=== PATIENT | male | born 2000 | race Caucasian/White ===

== ENCOUNTER 2023-12-20 11:54 | Emergency (ER) | payer OTHER, SELFPAY ==
[2023-12-20 12:19] VITALS: BP 114/72; PULSE 95; RESP 18; TEMP 37; O2SAT 96; BMI 19.0
--- NOTE | 2023-12-20 12:21 | ED_ITS ---
HPI - General Adult General Chief complaint: Psychiatric Symptoms Stated complaint: Psych eval Time Seen by Provider: 12/20/23 14:21 Source: patient and family (patient's mother) Mode of arrival: ambulatory Limitations: no limitations History of Present Illness HPI narrative: Patient is a 23 year old assigned male at with a history of OCD presenting to the emergency department today with worsening sensitivity to surroundings and increased agitation. Patient states that he feels like more things are triggering to him / overwhelming him. Patient's mother states that the patient is more angry lately. Patient denies any dizziness, lightheadedness, abdominal pain, nausea, vomiting, fever, chills, blurry vision, double vision, loss of vision, chest pain, difficulty breathing, shortness of breath, back pain, night sweats, pain with urination, increased urinary frequency, increased urinary urgency, blood in his urine or stool, syncope or a near syncopal episode, recent trauma or falls, bowel incontinence, bladder incontinence, bowel retention, bladder retention, or any other complaints at this time. Onset (ago): day(s) Relieving factors: none Exacerbating factors: none Associated symptoms: denies other symptoms Treatments prior to arrival: none Related Data Allergies Allergy/AdvReac Type Severity Reaction Status Date / Time No Known Allergies Allergy Verified 12/20/23 12:18 Review of Systems 2 Constitutional: Constitutional: Reports no additional constitutional complaints, Denies chills, Denies fever(s) and Denies night sweats Eyes: Eyes: Reports no additional eye complaints, Denies blurry vision, Denies change in vision, Denies diplopia, Denies eye discharge, Denies loss of vision and Denies eye pain ENT: Denies dizziness Cardiovascular: Cardiovascular: Reports no additional cardiovascular complaints, Denies chest pain, Denies lightheadedness, Denies Loss of Consciousness and Denies dyspnea Respiratory: Respiratory: Reports no additional respiratory complaints and Denies dyspnea Gastrointestinal: Gastrointestinal: Reports no additional gastrointestinal complaints, Denies abdominal pain, Denies melena, Denies hematochezia, Denies change in bowel habits and Denies change in stool character Genitourinary: Genitourinary: Reports no additional male genitourinary complaints, Denies hematuria, Denies oliguria, Denies difficulty urinating, Denies dysuria, Denies urinary frequency, Denies urinary hesitancy, Denies urinary incontinence and Denies urinary urgency Musculoskeletal: Musculoskeletal: Reports no additional musculoskeletal complaints, Denies numbness and Denies tingling Neurologic: Denies dizziness, Denies loss of vision, Denies numbness and Denies tingling Psychiatric: Psychiatric: Reports irritability Endocrine: Endocrine: Reports no additional endocrine complaints Hematologic/Lymphatic: Hematologic/Lymphatic: Reports no additional hematologic/lymphatic complaints Allergic/Immunologic: Allergic/Immunologic: Reports no additional allergic/immunologic complaints PMFSH Past Medical History Attestation statement: The following information was validated with the patient. (patient's mother validated all information) Source: old records reviewed, obtained from family (patient's mother provided additional history and confirmed the history provided by the patient) and nursing notes reviewed Social History Social History Advance Directives: No Advance Directives Information Provided: No Physical Exam ED Vital Signs: Vital Signs - 24 hr 12/20/23 12:19 Temperature 98.6 F Pulse Rate 95 Respiratory Rate 18 Blood Pressure 114/72 Pulse Oximetry 96 Oxygen Delivery Method Room Air BMI result Body Mass Index 19.0 Const General: cooperative, no acute distress, alert and awake Nutritional Appearance: well nourished Orientation/consciousness: patient oriented x3 Limitations: no limitations HENMT Head: Yes normal to inspection and Yes atraumatic Ears: hearing grossly normal bilaterally and external ears normal General nose exam: Normal external nose present, no nasal discharge noted and no epistaxis Face and sinus: Yes normal facial exam, No abrasion and No laceration Mouth: Normal oral and palatal mucosa present, no drooling and no muffled voice Eyes General: appearance normal, both eyes and all related structures Periorbital: periorbital findings normal Eyelids: Yes eyelids normal Conjunctivae: conjunctivae normal Pupils: Equal, round and reactive pupils present EOM: EOMs intact bilaterally Neck Neck: Yes normal visual inspection, Yes full ROM and Yes no lymphadenopathy Chest Chest palpation & inspection: normal inspection of the chest Resp Effort & Inspection: normal respiratory effort and able to speak in complete sentences GI Inspection: Yes normal to inspection Neuro General: patient oriented x3 and moves all extremities Cranial nerves: Yes Equal, round and reactive pupils present Cognition (Neuro): normal cognition Motor exam (neuro): 5/5 motor strength present throughout Sensory Exam: Normal double simultaneous stimulation for sensation Coordination: [id number] test normal Extrem General: Yes normal to inspection, Yes full ROM and Yes capillary refill normal Psych Appearance: grossly normal Mental Status: mental status grossly normal Affect: normal affect Attitude: cooperative Thought process: Normal thought process present Thought content: Normal thought content present Insight: Good insight present (Psych) Course Course Course Narrative: RME performed by Jolie Duncan PA-C. Patient is a 23 year old assigned male at presenting to the emergency department with increased agitation and worsening OCD. Patient believes he needs to be admitted to the hospital. Detailed physical exam and review of systems are deferred to the aquatics instructor. Labs ordered. Behavioral health notified. Medical Decision Making Medical Decision Making [facility] Narrative: Patient is a 23 year old assigned male at with a history of OCD presenting to the emergency department today with increased trigger sensitivity and anger. Patient's physical exam was unremarkable. Patient's blood work was unremarkable. Patient's urine showed no acute process. I explained my physical exam findings as well as all test results to the patient and the patient's mother. I answered all questions asked by the patient and the patient's mother. Patient's disposition is pending CARE evaluation. Differential Diagnosis Differential Diagnoses: The differential diagnosis associated with the presentation includes Crisis Worsening OCD Admission/Observation Consideration of admission/observation: Escalation of care including admission/observation considered Patient's disposition pending CARE eval. Lab Data [facility] Lab Attestation statement: I reviewed the patient's lab results. My interpretation of these results are in the [facility] Rationale portion of this note. 12/20/23 14:32 12/20/23 14:32 Labs: Lab Results 12/20/23 Range/Units 14:32 WBC 7.2 (4.8-10.8) X10*3/uL RBC 5.53 (4.60-5.80) X10*6/uL Hgb 15.8 (14.0-18.0) g/dl Hct 47.2 (42.0-52.0) % MCV 85.4 (80.0-98.0) fL MCH 28.6 (27.0-33.0) pg MCHC 33.5 (31.0-36.0) g/dl RDW 12.8 (11.0-16.0) % Plt Count 264 (160-400) X10*3/uL MPV 9.1 L (9.4-12.4) fL Immature Gran % (Auto) 0.1 (0.0-0.4) % Neut % (Auto) 51.1 (45-73) % Lymph % (Auto) 32.7 (20-40) % [place] % (Auto) 13.8 H (2-11) % Eos % (Auto) 1.9 (0-4) % Baso % (Auto) 0.4 (0-2) % Lymph # (Auto) 2.4 (1.2-4.9) X10*3/uL [place] # (Auto) 1.0 (0.1-1.2) X10*3/uL Eos # (Auto) 0.1 (0.0-0.4) X10*3/uL Baso # (Auto) 0.0 (0.0-0.2) X10*3/uL Abs Immat Gran (auto) 0.01 (0.00-0.03) X10*3/uL Absolute Neuts (auto) 3.7 (2.0-8.3) x10*3/uL Absolute Nucleated RBC 0.000 (0.0-0.012) X10*3/uL Nucleated RBC % (auto) 0.0 (0.0-0.2) /100WBC Sodium 141 (135-145) mmol/L Potassium 4.3 (3.3-5.1) mmol/L Chloride 109 H (96-108) mmol/L Carbon Dioxide 26 (22-29) mmol/L Anion Gap 10 L (12-20) BUN 18 H (9-16) mg/dL Creatinine 0.80 (0.5-1.4) mg/dL Estim Creat Clear Calc 111.0 Estimated GFR > 60 Random Glucose 63 (60-115) mg/dL Calcium 9.9 (8.4-10.2) mg/dL Total Bilirubin 0.3 (0.0-1.0) mg/dL AST 18 (5-37) U/L ALT 19 (0-40) U/L Alkaline Phosphatase 57 (39-117) U/L Total Protein 7.7 (6.5-8.0) g/dL Albumin 4.6 (3.5-5.0) g/dL Salicylates < 5.0 L (15-30) mg/dL Acetaminophen < 3 (<30) mcg/mL Ethyl Alcohol < 10 mg/dL COVID-19 (LO) Negative (Negative) COVID-19 Clin Com See Note Independent Historian Clinical information obtained from an independent historian. History obtained from or confirmed by: Parent (patient's mother provided additional history and confirmed the history provided by the patient.) Discharge Plan Discharge Clinical Impression: OCD (obsessive compulsive disorder) Patient Disposition: Still a Patient
[2023-12-20 14:39] LABS: MANUAL DIFF FLAG NO
[2023-12-20 14:42] LABS: Basophils Percent Auto 0.4 % (0-2); Eosinophils Absolute Auto 0.1 X10*3/uL (0.0-0.4); Eosinophils Percent Auto 1.9 % (0-4); Hematocrit 47.2 % (42.0-52.0); Hemoglobin 15.8 g/dl (14.0-18.0); Imm Gran Abs Auto 0.01 X10*3/uL (0.00-0.03); Imm Gran Pct Auto 0.1 % (0.0-0.4); Lymphocytes Absolute Auto 2.4 X10*3/uL (1.2-4.9); Lymphocytes Percent Auto 32.7 % (20-40); Mean Corpuscular HGB Conc 33.5 g/dl (31.0-36.0); Mean Corpuscular Hemoglobin 28.6 pg (27.0-33.0); Mean Corpuscular Volume 85.4 fL (80.0-98.0); Mean Platelet Volume 9.1 fL (9.4-12.4); Monocytes Percent Auto 13.8 % (2-11); Neutrophils Absolute Auto 3.7 x10*3/uL (2.0-8.3); Neutrophils Percent Auto 51.1 % (45-73); Platelet Count 264 X10*3/uL (160-400); Red Blood Count 5.53 X10*6/uL (4.60-5.80); Red Cell Distribution Width 12.8 % (11.0-16.0); White Blood Count 7.2 X10*3/uL (4.8-10.8)
[2023-12-20 14:57] LABS: Alanine Aminotransferase 19 U/L (0-40); Albumin Level 4.6 g/dL (3.5-5.0); Alkaline Phosphatase 57 U/L (39-117); Anion Gap 10 (12-20); Aspartate Amino Transferase 18 U/L (5-37); Bilirubin Total 0.3 mg/dL (0.0-1.0); Blood Urea Nitrogen 18 mg/dL (9-16); Calcium 9.9 mg/dL (8.4-10.2); Carbon Dioxide 26 mmol/L (22-29); Chloride 109 mmol/L (96-108); Estimated Glomerular Filt Rate > 60; Ethanol < 10 mg/dL; Glucose Random 63 mg/dL (60-115); Potassium 4.3 mmol/L (3.3-5.1); Sodium 141 mmol/L (135-145); Total Protein 7.7 g/dL (6.5-8.0)
[2023-12-20 15:11] LABS: COVID-19 Test Negative (Negative); IDNOW Serial# 152EDE1D
[2023-12-20 15:20] LABS: Acetaminophen LAB < 3 mcg/mL (<30); Salicylate < 5.0 mg/dL (15-30)
[2023-12-20 15:46] LABS: Appearance Urine Clear; Color Urine Yellow; Glucose Urine UA Negative (Negative); Leukocyte Esterase Urine Negative (Negative); Nitrite Urine Negative (Negative); PH 5.5 (5.0-9.0); Specific Gravity - Urine 1.025 (1.005-1.025); Urine Blood Negative (Negative); Urine Ketones Negative (Negative); Urine Protein Negative (Neg-Trace)
--- NOTE | 2023-12-20 17:29 | PC.NURSE ---
Lakia from Care Team at pt's bedside, pt's mother present.
[2023-12-20 18:28] LABS: Amphetamine Screen Urine Not Detected (Not Detect); Barbiturates, Urine Not Detected (Not Detect); Benzodiazepines Screen Urine Not Detected (Not Detect); Cannabinoid Screen Urine Not Detected (Not Detect); Cocaine Screen Urine Not Detected (Not Detect); Fentanyl, urine Not Detected (Not Detect); Opiate Screen Urine Not Detected (Not Detect); Phencyclidine Screen Urine Not Detected (Not Detect)
--- NOTE | 2023-12-20 19:37 | PC.NURSE ---
patient here and remains at rest presently, respirations are even and unlabored patient appears in no distress.
[2023-12-20 20:51] VITALS: BP 148/86; PULSE 84; RESP 20; TEMP 36.6; O2SAT 96
[2023-12-20] MEDS: fluvoxaMINE Maleate 50 MG TABLET PO (21:50)
[2023-12-20] MEDS: OLANZapine 7.5 MG TABLET PO (21:50)
--- NOTE | 2023-12-20 22:24 | MHC.CARE ---
Pt referred to [facility], LEATHER STRETCHER Goldie, EVANGELINA Barreto, and [facility] resp[facility].
[2023-12-21 06:28] VITALS: BP 111/69; PULSE 69; RESP 15; TEMP 36.8; O2SAT 97
--- NOTE | 2023-12-21 07:10 | PC.NURSE ---
Assumed care of patient at 0700, patient appears to be sleeping, respirations even and unlabored, no apparent distress. Continue plan of care for [facility] referral
[2023-12-21] MEDS: lamoTRIgine 25 MG TABLET 75 MG PO (08:09)
[2023-12-21 13:27] VITALS: BP 109/88; PULSE 76; RESP 16; TEMP 36.6; O2SAT 98
== END 2023-12-21 13:28 | disposition home or self-care (01) ==
PROVIDERS: Physician Assistant Medical; Emergency Provider Emergency Medicine; PCP Internal Medicine
DX: F42.9 Obsessive-compulsive disorder, unspecified (principal); Z11.52 Encounter for screening for COVID-19
CPT/HCPCS: 80053; 80143; 80179; 80307; 81003; 85025; 87635; 99285; S9485

== ENCOUNTER 2025-01-17 12:44 | Emergency (ER) | payer OTHER, SELFPAY ==
--- NOTE | 2025-01-17 12:55 | ED.GENADULT ---
HPI - General Adult General Chief complaint: Psychiatric Symptoms Stated complaint: psych eval Time Seen by Provider: 01/17/25 12:55 Source: patient and family (patient's mother and step-father) Mode of arrival: ambulatory Limitations: no limitations History of Present Illness ED Provider: Jolie Duncan PA-C HPI narrative: Patient is a 24 year old assigned male at with a history of OCD and Autism presenting to the emergency department today with depression. Patient states that he is feeling more depressed but is not currently having any thoughts of hurting himself or others. Patient denies any dizziness, lightheadedness, abdominal pain, nausea, vomiting, fever, chills, blurry vision, double vision, loss of vision, chest pain, difficulty breathing, shortness of breath, back pain, night sweats, pain with urination, increased urinary frequency, increased urinary urgency, blood in his urine or stool, syncope or a near syncopal episode, recent trauma or falls, bowel incontinence, bladder incontinence, or any other complaints at this time. Relieving factors: none Exacerbating factors: none Associated symptoms: denies other symptoms Treatments prior to arrival: none Related Data Home Medications ?Medication ?Instructions ?Recorded ?Confirmed fluvoxamine 25 mg tablet 25 mg PO BEDTIME 12/20/23 12/20/23 fluvoxamine 50 mg tablet 50 mg PO BEDTIME 12/20/23 12/20/23 lamotrigine 25 mg tablet 75 mg PO QAM 12/20/23 12/20/23 olanzapine 7.5 mg tablet 7.5 mg PO BEDTIME 12/20/23 12/20/23 Allergies Allergy/AdvReac Type Severity Reaction Status Date / Time No Known Allergies Allergy Verified 01/17/25 13:13 Review of Systems Constitutional: Constitutional: Reports no additional constitutional complaints, Denies chills, Denies fever(s) and Denies night sweats Eyes: Eyes: Reports no additional eye complaints, Denies blurry vision, Denies change in vision, Denies diplopia, Denies eye discharge, Denies loss of vision and Denies eye pain ENT: Denies dizziness Cardiovascular: Cardiovascular: Reports no additional cardiovascular complaints, Denies chest pain, Denies lightheadedness, Denies Loss of Consciousness and Denies dyspnea Respiratory: Respiratory: Reports no additional respiratory complaints and Denies dyspnea Gastrointestinal: Gastrointestinal: Reports no additional gastrointestinal complaints, Denies abdominal pain, Denies melena, Denies hematochezia, Denies change in bowel habits and Denies change in stool character Genitourinary: Genitourinary: Reports no additional male genitourinary complaints, Denies hematuria, Denies oliguria, Denies difficulty urinating, Denies dysuria, Denies urinary frequency, Denies urinary hesitancy, Denies urinary incontinence and Denies urinary urgency Musculoskeletal: Musculoskeletal: Reports no additional musculoskeletal complaints, Denies numbness and Denies tingling Neurologic: Denies dizziness, Denies loss of vision, Denies numbness and Denies tingling Psychiatric: Psychiatric: Reports no additional psychiatric complaints, Reports depression, Denies homicidal ideation and Denies suicidal ideation Endocrine: Endocrine: Reports no additional endocrine complaints Hematologic/Lymphatic: Hematologic/Lymphatic: Reports no additional hematologic/lymphatic complaints Allergic/Immunologic: Allergic/Immunologic: Reports no additional allergic/immunologic complaints PMFSH Past Medical History Attestation statement: The following information was validated with the patient. (all information validated with the patient's mother and step-father) Source: old records reviewed and obtained from family (patient's mother and step-father provided additional history and confirmed the history provided by the patient. ) Social History Social History Advance Directives: No Advance Directives Information Provided: Yes Physical Exam ED Vital Signs: Vital Signs - 24 hr 01/17/25 12:59 01/17/25 16:37 Temperature 98.9 F 98.4 F Pulse Rate 84 91 Respiratory Rate 18 14 Blood Pressure 133/70 127/70 Pulse Oximetry 96 96 Oxygen Delivery Method Room Air Room Air BMI result Body Mass Index 20.8 Const General: cooperative, no acute distress, alert and awake Nutritional Appearance: well nourished Orientation/consciousness: patient oriented x3 Limitations: no limitations HENMT Head: Yes normal to inspection and Yes atraumatic Ears: hearing grossly normal bilaterally and external ears normal General nose exam: Normal external nose present, no nasal discharge noted and no epistaxis Face and sinus: Yes normal facial exam, No abrasion and No laceration Mouth: Normal oral and palatal mucosa present, no drooling and no muffled voice Eyes General: appearance normal, both eyes and all related structures Periorbital: periorbital findings normal Eyelids: Yes eyelids normal Conjunctivae: conjunctivae normal Pupils: Equal, round and reactive pupils present EOM: EOMs intact bilaterally Neck Neck: Yes normal visual inspection, Yes full ROM and Yes no lymphadenopathy Chest Chest palpation & inspection: normal inspection of the chest Resp Effort & Inspection: normal respiratory effort and able to speak in complete sentences GI Inspection: Yes normal to inspection Neuro General: patient oriented x3, moves all extremities and CN's II-XI intact bilaterally Cranial nerves: Yes Equal, round and reactive pupils present Cognition (Neuro): normal cognition Extrem General: Yes normal to inspection, Yes full ROM and Yes capillary refill normal Psych Appearance: grossly normal Mental Status: mental status grossly normal Affect: Indifferent affect present Attitude: cooperative Thought process: Normal thought process present Thought content: Normal thought content present Medical Decision Making Medical Decision Making MDM Narrative: Patient is a 24 year old assigned male at with a history of OCD and Autism presenting to the emergency department today with depression. Patient's physical exam was as noted in the physical exam portion of this note. Patient's blood work was unremarkable. Patient's EKG was unremarkable. I explained my physical exam findings as well as all test results to the patient and the patient's mother, and patient's step-father. I answered all questions asked by the patient and the patient's mother, and patient's step-father. Patient was evaluated by the CARE team who spent an extensive amount of time discharge planning with the patient and the patient's mother, and patient's step-father. The patient and the patient's mother, and patient's step-father all verbalized agreement and comfort with bringing the patient back home. I stressed the importance of the patient taking his medication as directed (either prescribed or as the over the counter packaging recommends). I stressed the importance of the patient following up with his primary care provider and his psychiatric providers. I stressed the importance of the patient returning to the emergency department immediately if his symptoms were to worsen or if he were to develop any suicidal ideation, homicidal ideation, dizziness, shortness of breath, difficulty breathing, chest pain, blurry vision, loss of vision, nausea, vomiting, abdominal pain, fever, chills, back pain, or any other complaints. Patient and the patient's mother, and patient's step-father verbalized agreement and understanding with this treatment plan and discharge. Differential Diagnosis Differential Diagnoses: The differential diagnosis associated with the presentation includes Depression Admission/Observation Consideration of admission/observation: Escalation of care including admission/observation considered Patient would have been admitted to the hospital had his work up had any findings where hospital admission was appropriate and his clinical presentation warranted hospital admission. Consult Healthcare Provider Management of the patient was discussed with: Behavioral Health Provider (spoke with the CARE team as noted in the MDM Rationale portion of this note. ) Lab Data [facility] Lab Attestation statement: I reviewed the patient's lab results. My interpretation of these results are in the MDM Rationale portion of this note. 01/17/25 13:23 01/17/25 13:23 Labs: Lab Results 01/17/25 Range/Units 13:23 WBC 7.1 (4.8-10.8) X10*3/uL RBC 5.46 (4.60-5.80) X10*6/uL Hgb 15.8 (14.0-18.0) g/dl Hct 46.4 (42.0-52.0) % MCV 85.0 (80.0-98.0) fL MCH 28.9 (27.0-33.0) pg MCHC 34.1 (31.0-36.0) g/dl RDW 13.1 (11.0-16.0) % Plt Count 225 (160-400) X10*3/uL MPV 9.3 L (9.4-12.4) fL Immature Gran % (Auto) 0.3 (0.0-0.4) % Neut % (Auto) 66.2 (45-73) % Lymph % (Auto) 23.2 (20-40) % [place] % (Auto) 8.3 (2-11) % Eos % (Auto) 1.4 (0-4) % Baso % (Auto) 0.6 (0-2) % Lymph # (Auto) 1.7 (1.2-4.9) X10*3/uL [place] # (Auto) 0.6 (0.1-1.2) X10*3/uL Eos # (Auto) 0.1 (0.0-0.4) X10*3/uL Baso # (Auto) 0.0 (0.0-0.2) X10*3/uL Abs Immat Gran (auto) 0.02 (0.00-0.03) X10*3/uL Absolute Neuts (auto) 4.7 (2.0-8.3) x10*3/uL Absolute Nucleated RBC 0.000 (0.0-0.012) X10*3/uL Nucleated RBC % (auto) 0.0 (0.0-0.2) /100WBC Sodium 141 (135-145) mmol/L Potassium 3.4 D (3.3-5.1) mmol/L Chloride 107 (96-108) mmol/L Carbon Dioxide 26 (22-29) mmol/L Anion Gap 11 L (12-20) BUN 20 H (9-16) mg/dL Creatinine 0.95 (0.5-1.4) mg/dL Estim Creat Clear Calc 96.9 Estimated GFR > 60 Random Glucose 141 H (60-115) mg/dL Calcium 9.6 (8.4-10.2) mg/dL Total Bilirubin 0.4 (0.0-1.0) mg/dL AST 34 (5-37) U/L ALT 53 H (0-40) U/L Alkaline Phosphatase 60 (39-117) U/L Total Protein 7.0 (6.5-8.0) g/dL Albumin 4.3 (3.5-5.0) g/dL Salicylates < 5.0 L (15-30) mg/dL Acetaminophen < 3 (<30) mcg/mL Ethyl Alcohol < 10 mg/dL COVID-19 (LO) Negative (Negative) COVID-19 Clin Com See Note Independent Interpretation I performed an independent interpretation of an: EKG Interpretation: I independently interpreted this EKG and am in agreement with the below findings: Vent. Rate: 58 BPM Atrial Rate: 58 BPM P-R Int: 162 ms QRS Dur: 98 ms QT Int: 386 ms P-R-T Axes: 23 35 33 degrees QTcB Int: 378 ms Sinus bradycardia No previous ECGs available DD/ 1336 Independent Historian Clinical information obtained from an independent historian. History obtained from or confirmed by: Parent (patient's mother and step-father provided additional history and confirmed the history provided by the patient. ) Critical Care Time Critical Care Time Critical Care Time: Yes Total Critical Care Time: 34 Attestation: I spent 34 minutes of Critical Care Time with this patient. This does not include time spent on separately reported billable procedures. Discharge Plan Discharge Clinical Impression: Depression Patient Disposition: Home, Self-Care Instructions: Depression (DC) Additional Instructions: You were seen in our Emergency Department today for a concern regarding your mental / behavioral behavioral health. It is important after this visit today that you follow up with either your mental / behavioral health or primary care provider within 7 days (from today).? Return for any worsening symptoms or concerns such as thoughts of harming yourself or others. Please call 911 immediately if you feel your mental health is worsening.? [place] [facility] Lifeline: Available 24 hours a day, 7 days a week, 365 days a year Dial 988 with any telephone to speak to someone immediately [facility] (Mental / Behavioral health therapist: [address], [place] [id number] [facility]: [address] [place] [address] Open from 10am - 12pm (walk ins welcome) [facility] Crisis Services: [address] [place] [address] Walk in hours from 10am - 12pm Behavioral health Network: [address] [place] [address] [id number] [place] [phone] Wednesday through Wednesday 8am - 8pm Wednesday and Wednesday 9am - 5pm Follow up with your primary care provider. Return to the emergency department immediately if your symptoms worsen or if you develop any numbness, tingling, dizziness, shortness of breath, difficulty breathing, chest pain, blurry vision, loss of vision, nausea, vomiting, abdominal pain, fever, chills, back pain, or any other complaints. Please see the information below about our Patient Portal. If you are not yet enrolled in the [facility] Patient Portal, you will receive an enrollment email invitation following your visit to any [facility] care setting. You may also self-enroll in the Patient Portal by visiting our website: [email or web address] The following information is required to access the Patient Portal: - Your [facility] Medical Record Number - Your personal home email address (must match what is in your electronic medical record, Registration staff can assist with this) - Name - Date of Capabilities of the Patient Portal: - Message some providers - View upcoming appointments - Access your health summary, medical history, and visit history - View current conditions and allergies - View procedure and lab results - View your medications, including guidelines, side effects, and precautions - Complete pre-appointment questionnaires requested by your provider - Ready summary reports of your office visits and procedures To access the Patient Portal Mobile [employer], follow these directions: - Search Prescreen in the [employer]a Store or Oris4 Store - Download the [employer]a - Search for [facility] - Enter your login/password Prescriptions: No Action olanzapine 7.5 mg tablet 7.5 mg PO BEDTIME lamotrigine 25 mg tablet 75 mg PO QAM fluvoxamine 25 mg tablet 25 mg PO BEDTIME fluvoxamine 50 mg tablet 50 mg PO BEDTIME Referrals: Jennifer Aly MD [Primary Care Provider] - Interventions: [place]-Suicide Risk Severity Scale Last Done: 01/17/25 16:37 ED Discharge Assessment Last Done: 01/17/25 16:37 Discharge Date/Time: 01/17/25 16:38 Print Language: Tanzanian
--- NOTE | 2025-01-17 12:56 | ECG_ITS ---
Test Reason : MED CLEARANCE Blood Pressure : */* mmHG Vent. Rate : 58 BPM Atrial Rate : 58 BPM P-R Int : 162 ms QRS Dur : 98 ms QT Int : 386 ms P-R-T Axes : 23 35 33 degrees QTcB Int : 378 ms Sinus bradycardia Otherwise normal ECG No previous ECGs available Referred By: Jolie Duncan Electronically Signed By: ASHLEY FRIAS MD
[2025-01-17 12:59] VITALS: BP 133/70; PULSE 84; RESP 18; TEMP 37.2; O2SAT 96; BMI 20.8
[2025-01-17 13:28] LABS: MANUAL DIFF FLAG NO
[2025-01-17 13:33] LABS: Basophils Percent Auto 0.6 % (0-2); Eosinophils Absolute Auto 0.1 X10*3/uL (0.0-0.4); Eosinophils Percent Auto 1.4 % (0-4); Hematocrit 46.4 % (42.0-52.0); Hemoglobin 15.8 g/dl (14.0-18.0); Imm Gran Abs Auto 0.02 X10*3/uL (0.00-0.03); Imm Gran Pct Auto 0.3 % (0.0-0.4); Lymphocytes Absolute Auto 1.7 X10*3/uL (1.2-4.9); Lymphocytes Percent Auto 23.2 % (20-40); Mean Corpuscular HGB Conc 34.1 g/dl (31.0-36.0); Mean Corpuscular Hemoglobin 28.9 pg (27.0-33.0); Mean Platelet Volume 9.3 fL (9.4-12.4); Monocytes Absolute Auto 0.6 X10*3/uL (0.1-1.2); Monocytes Percent Auto 8.3 % (2-11); Neutrophils Absolute Auto 4.7 x10*3/uL (2.0-8.3); Neutrophils Percent Auto 66.2 % (45-73); Platelet Count 225 X10*3/uL (160-400); Red Blood Count 5.46 X10*6/uL (4.60-5.80); Red Cell Distribution Width 13.1 % (11.0-16.0); White Blood Count 7.1 X10*3/uL (4.8-10.8)
[2025-01-17 13:41] LABS: COVID-19 Test Negative (Negative); IDNOW Serial# 55D5AD1C
[2025-01-17 13:50] LABS: Acetaminophen LAB < 3 mcg/mL (<30); Salicylate < 5.0 mg/dL (15-30)
[2025-01-17 13:51] LABS: Alanine Aminotransferase 53 U/L (0-40); Albumin Level 4.3 g/dL (3.5-5.0); Alkaline Phosphatase 60 U/L (39-117); Anion Gap 11 (12-20); Aspartate Amino Transferase 34 U/L (5-37); Bilirubin Total 0.4 mg/dL (0.0-1.0); Blood Urea Nitrogen 20 mg/dL (9-16); Calcium 9.6 mg/dL (8.4-10.2); Carbon Dioxide 26 mmol/L (22-29); Chloride 107 mmol/L (96-108); Creatinine Clr Calc Pharmacy 96.9; Estimated Glomerular Filt Rate > 60; Ethanol < 10 mg/dL; Glucose Random 141 mg/dL (60-115); Potassium 3.4 mmol/L (3.3-5.1); Sodium 141 mmol/L (135-145)
--- OUTSIDE RECORDS SUMMARY | 2025-01-17 15:57 | XMS_ITS | Encounter Summary ---
Author Organization [facility] Address [address] [place] [id number] Phone Care Team Providers Care Farm Management Professor Name Role Phone Lencho Deleon MD Primary Care Provider [phone] Encounter Details Date Type Department Care Team (Late st Contact Info) Description 05/20/2017 Conversion Encounter [facility] - [address] [address] Social History Tobacco Use Types Packs/Day Years Used Date Smoking Tobacco: Never Assessed Sex and Gender Information Value Date Recorded Sex Assigned at Not on file Legal Sex Male 6:38 PM EDT Gender Identity Not on file Sexual Orientation Not on file documented as of this encounter Plan of Treatment Not on file documented as of this encounter Visit Diagnoses Not on filedocumented in this encounter Care Teams Farm Management Professor Relationship Specialty Start Date End Date Lencho Deleon MD [address] [facility] [place] [address] PCP - General 02/09/18 documented as of this encounter
--- OUTSIDE RECORDS SUMMARY | 2025-01-17 15:57 | XMS_ITS | Encounter Summary ---
Author Organization [facility] Address [address] [place] [id number] Phone Care Team Providers Care Geothermal Powerplant Mechanic Name Role Phone Lencho Deleon MD Primary Care Provider [phone] Encounter Details Date Type Department Care Team (Late st Contact Info) Description 02/27/2011 Conversion Encounter [facility] [address] [facility] [address] Social History Tobacco Use Types Packs/Day Years [...] on filedocumented in this encounter Care Teams Geothermal Powerplant Mechanic Relationship Specialty Start Date End Date Lencho Deleon MD [address] [facility] [address] PCP - General 02/09/18 documented as of this encounter
--- OUTSIDE RECORDS SUMMARY | 2025-01-17 15:57 | XMS_ITS | Clinical Summary ---
Author Organization [facility] Address [address] [place] [address] Phone Care Team Providers Care Cargo Inspector Name Role Phone Lencho Deleon MD Primary Care Provider [phone] Allergies No known active allergies Medications albuterol (2.5 MG/3ML) 0.083% nebulizer solution Inhale 0.083 %. 5 Active albuterol HFA 108 (90 Base) MCG/ACT inhalerIndicatio ns:Viral upper respiratory tract infection Inhale 2 puffs every 4 (four) hours as needed for wheezing or shortness of breath. 1 Units 8 Active fluticasone (Flonase) 50 MCG/ACT nasal sprayIndications :Seasonal allergic rhinitis due to pollen Administer 1 spray into each nostril daily. 1 Units 5 2 Active diphenhydrAMINE (Benadryl Allergy) 25 MG tabletIndication s:Viral upper respiratory tract infection,Season al allergic rhinitis due to pollen Take 1 tablet (25 mg total) by mouth every 6 (six) hours as needed for itching. 30 tablet 3 Active Active Problems Problem Noted Date Diagnosed Date Impaired cognition 12/26/2021 Severe major depression with psychotic features 12/26/2021 Contusion of right lower leg 07/18/2020 Autism spectrum disorder 07/12/2018 Allergic rhinitis 03/02/2017 Overview (04/01/2018): Allergic rhinitis, unspecified cause (477.9) Onset: 03/02/2017 Added by: Deja Gregory Generalized anxiety disorder 09/10/2016 Overview (04/01/2018): Anxiety (300.02) Onset: 09/10/2016 Added by: Lencho Deleon Assessment & Plan (12/04/2022 3:15 PM EST): Shabbir has a history of anxiety and depression. He has been on and off medication. He had a partial hospitalization but that did not take. I think he needs more evaluation and treatment. Obsessive-compulsive disorder 09/10/2016 Overview (04/01/2018): OCD (300.3) Onset: 09/10/2016 Added by: Lencho Deleon Other acne 02/11/2016 Overview (04/01/2018): Acne vulgaris (706.1) Onset: 02/11/2016 Added by: Lencho Deleon Attention deficit disorder with hyperactivity Overview (04/01/2018): ADHD (314.01) Onset: 02/11/2016 Added by: Lencho Deleon Cough variant asthma 07/05/2015 Overview (04/01/2018): Cough variant asthma (493.82) Onset: 07/05/2015 Added by: Mirella Cavanaugh Assessment & Plan (10/10/2022 11:30 AM EST): Patient has not tried tessalon perles in the past. Will try this to help with cough. No signs on exam of a bacterial infection. Long history of cough with cough variant asthma noted in 2014. He has seen ENT in 2019 for a deviated septum and allergic rhinitis, treated with flonase. He has tried singulair and cetirizine. It looks like he had a pulmonary referral placed in 2021 but I don't see a pulmonary evaluation. Assessment & Plan (08/01/2019 2:00 PM EDT): We have been under playing Shabbir for years. He has a persistent cough, and when he was younger we thought he had asthma but stopped inhaled steroids. We also thought he had a habit cough, related to anxiety and autism. But now there is concern that climbing stairs causes him resp distress and coughing. We will refer him to pulmonology for evaluation of asthma. Immunizations Immunization Administration Dates Next Due DTaP 5 03/24/2006, 6,03/21/2003,03/21,03/29/2002,03/29/2002,01/18/2002 ,01/18/2002,2001,2001 HPV Vaccine 9 Valent 04/25/2015 HPV, Quadrivalent 12/14/2014,10/16/2014 Hep A, ped/adol 06/04/2011,02/11/2010 Hep B, ped/adol 09/06/2002, 2,03/29/2002,10/27,2001,2001 Hib (PRP-T) 01/26/2003, 3,03/29/2002,03/29,01/18/2002,01/18/2002,2001 ,2001 IPV 08/01/2019, 6,06/09/2002,06/09,01/18/2002,01/18/2002,2001 ,2001 Influenza, injectable, quadrivalent 08/01/2019 Influenza, injectable, quadr ivalent, preservative free 07/27/2018,10/16/2014 Influenza, injectable, trivalent 010,07/20/2008,07/22/2007,08/30,09/02/2005,07/09/2004 Influenza, injectable, triva lent, preservative free 10/09/2013,06/23/2012,06/04/2011 MMR 03/24/2006, 6,09/14/2002,09/14 Meningococcal Conj (Menactra) MCV4P 07/27/2018,0 10/21/2012 Pneumococcal Conjugate 02/16/2003,2002,03/29/2002,03/29,01/18/2002,01/18/2002,2001 ,2001 Tdap 05/06/2012 Varicella 07/20/2008,09/14/2002,09/14/2002 Family History Medical History Relation Name Comments ADD / ADHD Father Yovanny Russo Anxiety disorder Mother Crystal Asthma Mother Crystal Depression Mother Crystal Fibromyalgia Mother Crystal Hyperlipidemia Mother Crystal Hypertension Mother Crystal Relation Name Status Comments Father Yovanny Russo Alive Half-Brother Tyler Alive Maternal Grandfather Alive Materna l grandfather: Elevated cholesterol, elevated blood pressur Maternal Grandmother Materna l grandmother: Cancer -bladder Mother Crystal Alive Mother: Alive a nd well Social History Tobacco Use Types Packs/Day Years Used Date Smoking Tobacco: Never Comments:Never Smoker Hunger/Food Answer Date Recorded In the last 12 months, did y ou or your family ever eat less than you felt you should because there wasn't enough money for food? No 08/01/2019 Stable Housing Answer Date Recorded Are you worried that in the next 2 months you may not have stable housing? No 08/01/2019 Transportation Concerns Answer Date Rec orded In the last 12 months, have you or your family ever had to go without healthcare because you didn't have a way to get there? No 08/01/2019 Hazards in Home Answer Date Recorded Think about the place you li ve. Do you have problems with any of the following? Pests (mice or roaches), mold, no/not working smoke detectors, water leaks, no window guards. No 2018 Financing Utilities Answer Date Recorde d In the last 12 months, has t he electric, gas, oil, or water company threatened to shut off your services in your home? No 08/01/2019 Safety at Home Answer Date Recorded Are you or your family worried about feeling saf e in your home? No 08/01/2019 Outside Support Answer Date Recorded Do you feel that you need mo re support from other people or programs to help you care for yourself or your family? No 08/01/2019 Understanding Health Concerns Answer Da te Recorded Do you need help understandi ng your or your child's healthcare needs (diagnosis, medications, plan, etc.)? No 08/01/2019 Financing Health Concerns Answer Date R ecorded In the last 12 months, was t here a time when your child needed to see a doctor or get medications or supplies but could not because of cost? No 08/01/2019 Missing School or Work Answer Date Ángel rded Did you or your child miss s chool or work because of a health problem that could have been avoided? No 08/01/2019 Sex and Gender Information Value Date Recorded Sex Assigned at Not on file Legal Sex Male 6:38 PM EDT Gender Identity Not on file Sexual Orientation Not on file Last Filed Vital Signs Vital Sign Reading Time Taken Comments Blood Pressure 94/60 12/04/2022 11:34 AM EST Pulse 68 12/04/2022 11:34 AM EST Temperature 37.2 ??C (98.9 ??F) 07/13/2023 3:22 PM ED T Respiratory Rate - - Oxygen Saturation 98% 07/03/2011 2:25 PM EDT Inhaled Oxygen Concentration - - Weight 49.9 kg (110 lb) 07/13/2023 3:22 PM EDT Height 166 cm (5' 5.35 ) 12/04/2022 11:34 AM EST Body Mass Index 18.11 12/04/2022 11:34 AM EST Plan of Treatment Health Maintenance Due Date Last Done Comments Men B Vaccine (1 of 2 - Standard) 2017 DTaP,Tdap,and Td Vaccines (7 - Td or Tdap) 05/06/2022 05/06/2012, 03/24/2006, 03/24/2006, Additional history exists Influenza Vaccines (#1) 2024 08/01/20 19, 07/27/2018, 10/16/2014, Additional history exists COVID-19 Vaccine (3 - 2023-2 5 season) 2024 02/27/2021, 02/06/2021 Hepatitis B Vaccines Completed 09/06/2002, 03/29/2002, 03/29/2002, Additional history exists HIB Vaccines Completed 01/26/2003, 01/03, 03/29/2002, Additional history exists Pneumococcal Vaccine Completed 02/16/2003, 02/16/2003, 03/29/2002, Additional history exists MMR Vaccines Completed 03/24/2006, 03/05, 09/14/2002, Additional history exists Varicella Vaccines Completed 07/20/2008, 1 2001, 09/14/2002 Hepatitis A Vaccines Completed 06/04/2011, 02/12/20 10 HPV Vaccines Completed 04/25/2015, 12/02, 10/16/2014 Meningococcal Vaccine Completed 07/27/2018, 013 IPV Vaccines Completed 08/01/2019, 03/05, 06/09/2002, Additional history exists Insurance BRENDA Chicas [id number] [facility] [place] [phone] Care Teams Cargo Inspector Relationship Specialty Start Date End Date Lencho Deleon MD [facility] [facility] [place] [address] PCP - General 02/09/18
--- NOTE | 2025-01-17 15:58 | PC.NURSE ---
Family at bedside visiting the patient (parents). Brought in by security.
[2025-01-17 16:37] VITALS: BP 127/70; PULSE 91; RESP 14; TEMP 36.9; O2SAT 96
== END 2025-01-17 16:38 | disposition home or self-care (01) ==
PROVIDERS: Physician Assistant Medical; Emergency Provider Emergency Medicine; PCP Internal Medicine
DX: F32.A Depression, unspecified (principal); R00.1 Bradycardia, unspecified; Z11.52 Encounter for screening for COVID-19; F42.9 Obsessive-compulsive disorder, unspecified; F84.0 Autistic disorder; Z79.899 Other long term (current) drug therapy
CPT/HCPCS: 80053; 80143; 80179; 80307; 85025; 87635; 93005; 99284; S9485

== ENCOUNTER → 2025-01-17 12:56 | Outpatient (BNV) | payer OTHER, SELFPAY | PROVIDERS: Emergency Provider Emergency Medicine; PCP Internal Medicine; Visit Provider Internal Medicine Cardiovascular Disease | DX: R00.1 Bradycardia, unspecified (principal) | CPT/HCPCS: 93010 ==